=== PATIENT | male | born 1940 | race African-American/Black ===

== ENCOUNTER 2021-05-10 22:12 | Emergency (ER) | payer MEDICARE ==
[~2021-05-10] VITALS: Ht 172.7 cm; Wt 59.0 kg
[~2021-05-10 22:12] MED LIST: PROAIR HFA; TERA5CAP4 PO
[2021-05-10 23:03] VITALS: BP 175/90
[2021-05-10 23:53] LABS: BASOPHILS % 0.3 % (0.0-2.0); EOSINOPHILS % 2.3 % (0.0-5.0); HEMATOCRIT. 42.6 % (42.0-52.0); LYMPHOCYTES % 14.4 % (20.0-50.0); MEAN CORPUSCULAR HEMOGLOBIN 27.8 pg (28.0-32.0); MEAN CORPUSCULAR VOLUME 91.3 fL (80.0-94.0); MEAN PLATELET VOLUME 8.9 fl (7.4-10.4); MONOCYTES % 9.7 % (2.0-8.0); NEUTROPHILS % 73.3 % (40.0-76.0); PLATELET 231 x1000/uL (130-400); RED BLOOD CELL COUNT 4.66 mill/uL (4.7-6.1); RED CELL DISTRIBUTION WIDTH 15.2 % (11.6-14.6)
[2021-05-11] LABS: CHLORIDE 105 mEq/L (98-107)
[2021-05-11] MEDS ORDERED: SODIUM CHLORIDE 0.9% 1,000 ML IV ONE
[2021-05-11 00:04] LABS: INR 1.1; PROTHROMBIN TIME 11.4 sec (9.6-11.0)
[2021-05-11 01:18] LABS: CHLORIDE 106 mEq/L (98-107)
[2021-05-11] MEDS ORDERED: HYDR30CR80 TP (01:36)
== END 2021-05-11 02:02 | disposition home or self-care (01) ==
LOC: ER 22:12
DX: K62.5 Hemorrhage of anus and rectum (principal); K60.2 Anal fissure, unspecified; Z85.038 Personal history of other malignant neoplasm of large intestine; Z90.49 Acquired absence of other specified parts of digestive tract; Z91.041 Radiographic dye allergy status; Z91.09 Other allergy status, other than to drugs and biological substances
CPT/HCPCS: 36415; 80048; 80053; 85025; 93005; 99284